=== PATIENT | female | born 1980 | race Caucasian/White ===

== ENCOUNTER 2017-08-16 13:11 | Emergency (ER) | payer OTHER ==
[~2017-08-16] VITALS: Ht 167.6 cm; Wt 69.3 kg
[2017-08-16 13:45] LABS: BASOPHIL (%) 0.6 % (0-1); EOSINOPHIL (%) 1.4 % (0-5); EOSINOPHIL COUNT 0.1 K/uL (0-0.3); HEMATOCRIT 39.9 % (36.0-46.0); HEMOGLOBIN 13.5 G/DL (11.9-15.5); IMMATURE GRANULOCYTE (%) 0.3 % (0.0-0.7); LYMPHOCYTE COUNT 3.1 K/uL (1.0-2.8); MCH 29.6 PG (29.0-34.0); MCHC 33.8 G/DL (30.0-36.0); MCV 87.5 FL (83-99); MONOCYTE (%) 5.6 % (3-12); MONOCYTE COUNT 0.4 K/uL (0-0.8); NEUTROPHIL (%) 48.1 % (45-76); NEUTROPHIL COUNT 3.4 K/uL (1.8-6.4); PLATELET COUNT 338 K/uL (156-360); RBC DIS.WIDTH-CV 12.1 % (11.8-14.6); RBC DIS.WIDTH-SD 38.8 % (39-53); RED BLOOD COUNT 4.56 M/uL (3.80-5.20)
[2017-08-16 13:58] LABS: ALBUMIN 4.5 g/dL (3.2-4.8); CHLORIDE 105 mEq/L (99-109); POTASSIUM 3.6 mEq/L (3.7-5.4); SODIUM 141 mEq/L (136-147)
[2017-08-16 14:01] LABS: GLUCOSE 99 mg/dL (70-99); TOTAL PROTEIN 7.5 g/dL (6.4-8.3)
[2017-08-16 14:02] LABS: TOTAL BILIRUBIN 0.3 mg/dL (0.0-1.0)
[2017-08-16 14:04] LABS: ALKALINE PHOSPHATASE 51 IU/L (3-129); CREATININE 0.9 mg/dL (0.6-1.3); GFR ESTIMATE (CALCULATED) > 59 mL/min/
[2017-08-16 14:05] LABS: UREA NITROGEN (BUN) 12 mg/dL (9-23)
[2017-08-16 14:06] LABS: AST (GOT) 17 IU/L (2-34); DIRECT BILIRUBIN 0.1 mg/dL (0.0-0.3)
[2017-08-16 14:07] LABS: ALT (GPT) 14 IU/L (3-49)
[2017-08-16 14:13] LABS: QUANTITATIVE HCG < 4.0 MIU/ML
[2017-08-16 14:23] VITALS: BP 119/72
[2017-08-18 11:57] LABS: HEPATITIS C ANTIBODY Nonreactive
[2017-08-18 11:58] LABS: HIV-1/2 AB/AG COMBO Nonreactive
[2017-08-18 11:59] LABS: HEPATITIS B SURFACE ANTIBODY REACTIVE
== END 2017-08-16 14:29 | disposition home or self-care (01) ==
LOC: EME 13:11
PROVIDERS: Nurse Practitioner Acute Care
DX: S61.233A Puncture wound without foreign body of left middle finger without damage to nail, initial encounter (principal); W46.1XXA Contact with contaminated hypodermic needle, initial encounter; Y93.F9 Activity, other caregiving; Y99.0 Civilian activity done for income or pay; Z77.21 Contact with and (suspected) exposure to potentially hazardous body fluids
CPT/HCPCS: 80048; 80076; 84702; 85025; 86706; 86803; 87389; 99281; 99284